=== PATIENT | male | born 1990 ===

== ENCOUNTER → 2019-10-10 | Outpatient (REF) | payer OTHER ==
[2019-10-10 22:18] LABS: INFLUENZA A AMPLIFICATION POSITIVE (NEGATIVE); INFLUENZA B AMPLIFICATION NEGATIVE (NEGATIVE)
== END ==
LOC: M LAB 21:20
PROVIDERS: ATTEND Physician Assistant
DX: J11.1 Influenza due to unidentified influenza virus with other respiratory manifestations (principal)